=== PATIENT | female | born 1975 | race Caucasian/White ===

== ENCOUNTER 2022-05-22 05:55 | Observation (INO) | payer OTHER ==
[2022-05-17 13:14] LABS: Hemoglobin 14.5 g/dL (12.0-15.5); Mean Corpuscular Hemoglobin 29.8 pg (27.0-33.0); Mean Platelet Volume 10.2 fl (7.4-10.4); Platelet Count 368 10x3/uL (150-450); RBC Distribution Width 12.5 % (11.5-14.5); Red Blood Cell (RBC) Count 4.87 10x6/uL (3.90-5.03); White Blood Cell (WBC) Count 5.9 10x3/uL (3.5-10.5)
[2022-05-17 13:32] LABS: BHCG - Serum Negative (NEGATIVE); Pregs Control Background? CLEAR/WHITE (CLR/WHITE); Pregs Control Bar Appear? YES (CONTROL BAR)
[2022-05-21 08:36] VITALS: BMI 23.0
[2022-05-22] MEDS ORDERED: Gabapentin 300 MG CAP ONE (06:18)
[2022-05-22] MEDS ORDERED: CeleCOXIB 100 MG CAP ONE (06:19)
[2022-05-22] MEDS ORDERED: Famotidine/PF 20 mg/2ml Vial ONE (06:19)
[2022-05-22] MEDS ORDERED: Bupivacaine PF 0.5% 30 ML VIAL ONE (06:34)
[2022-05-22] MEDS ORDERED: EPINEPHrine 1 MG/ML AMP ONE (06:34)
[2022-05-22] MEDS ORDERED: Lidocaine 1% w/Epinephrine 1:200K 30 ML VIAL ONE (06:35)
[2022-05-22] MEDS ORDERED: PROPOFOL 20 ML ONE (06:40)
[2022-05-22] MEDS ORDERED: Glycopyrrolate 0.2 MG/ML 5 ML SYRINGE ONE (06:41)
[2022-05-22] MEDS ORDERED: Midazolam HCl 2 mg/2 ml Vial ONE ×2 (06:41→07:33)
[2022-05-22] MEDS ORDERED: Fentanyl 250 MCG/5 ML VIAL ONE (06:41)
[2022-05-22] MEDS ORDERED: Ondansetron PF 4 MG/2 ML Vial ONE (06:41)
[2022-05-22] MEDS ORDERED: Ketorolac Tromethamine 30 MG/ML VIAL ONE (06:41)
[2022-05-22] MEDS ORDERED: Lidocaine 1% PF 5 ML VIAL ONE (06:41)
[2022-05-22] MEDS ORDERED: Rocuronium Bromide 10 MG/ML (10ML VIAL) ONE (06:41)
[2022-05-22] MEDS ORDERED: Clindamycin/D5W 900 mg/50 ml Premix Bag ONE (06:42)
[2022-05-22] MEDS ORDERED: Levofloxacin 500 mg/D5W 100 ml Premix Bag ONE (07:15)
[2022-05-22 07:18] LABS: SARS-CoV-2 NAA Rapid Test Not Detected (NotDetected)
[2022-05-22] MEDS ORDERED: PHENYLEPHRINE-NS 100 MCG/ML 10 ML SYRINGE ONE (07:48)
[2022-05-22] MEDS ORDERED: Promethazine HCl 25 MG/ML VIAL IM PRN (10:10)
[2022-05-22] MEDS ORDERED: Zolpidem Tartrate 5 MG TAB PO PRN (10:10)
[2022-05-22] MEDS ORDERED: diphenhydrAMINE 25 MG CAP PO PRN (10:10)
[2022-05-22] MEDS ORDERED: Fentanyl 100 MCG/2 ML VIAL SLOW IVP PRN (10:10)
[2022-05-22] MEDS ORDERED: HYDROcodone/Acetaminophen 5/325 mg Tablet PO PRN (10:10)
[2022-05-22] MEDS ORDERED: Bisacodyl 10 MG SUPP PR PRN (10:10)
[2022-05-22] MEDS ORDERED: Acetaminophen 325 MG TAB PO PRN (10:10)
[2022-05-22] MEDS ORDERED: Ondansetron PF 4 MG/2 ML Vial IVP PRN (10:10)
[2022-05-22] MEDS ORDERED: Fentanyl 100 MCG/2 ML VIAL ONE (10:36)
[2022-05-22] MEDS ORDERED: Ketorolac Tromethamine 30 MG/ML VIAL IVP SCH (12:00)
[2022-05-22] MEDS: HYDROcodone/Acetaminophen 5/325 mg Tablet PO PRN (13:19)
[2022-05-22] MEDS: Lactated Ringer's 1,000 ML IV SCH (14:05)
[2022-05-22] MEDS: Ketorolac Tromethamine 30 MG/ML VIAL IVP SCH ×2 (17:14→22:07)
[2022-05-23] MEDS: Lactated Ringer's 1,000 ML IV SCH (00:48)
[2022-05-23] MEDS: HYDROcodone/Acetaminophen 5/325 mg Tablet PO PRN ×3 (01:08→11:25)
[2022-05-23] MEDS: Ketorolac Tromethamine 30 MG/ML VIAL IVP SCH (04:28)
[2022-05-23] MEDS: Simethicone Chewable 80 MG TAB PO PRN ×2 (04:28→08:17)
[2022-05-23 05:08] LABS: Hemoglobin 12.1 g/dL (12.0-15.5); Mean Corpuscular HGB CONC 35.1 g/dL (32.0-36.0); Mean Corpuscular Hemoglobin 29.3 pg (27.0-33.0); Mean Corpuscular Volume 83.5 fl (81.6-98.3); Mean Platelet Volume 9.8 fl (7.4-10.4); Platelet Count 357 10x3/uL (150-450); RBC Distribution Width 12.4 % (11.5-14.5); Red Blood Cell (RBC) Count 4.13 10x6/uL (3.90-5.03); White Blood Cell (WBC) Count 11.9 10x3/uL (3.5-10.5)
[2022-05-23 07:31] VITALS: BP 127/78; TEMP 97.6
[2022-05-27] MEDS ORDERED: Ibuprofen 800 MG TAB PO SCH (14:00)
== END 2022-05-23 11:27 | disposition home or self-care (01) ==
LOC: CSHSDC 05:55 → CSHPED 11:05
PROVIDERS: ADMIT Student in an Organized Health Care Education/Training Program; ATTEND Student in an Organized Health Care Education/Training Program
PROC: 0UT94ZZ Resection of Uterus, Percutaneous Endoscopic Approach (ICD-10-PCS; principal; 2022-05-22)
PROC: 0UT74ZZ Resection of Bilateral Fallopian Tubes, Percutaneous Endoscopic Approach (ICD-10-PCS; 2022-05-22)
PROC: 0TSD4ZZ Reposition Urethra, Percutaneous Endoscopic Approach (ICD-10-PCS; 2022-05-22)
PROC: 0USG4ZZ Reposition Vagina, Percutaneous Endoscopic Approach (ICD-10-PCS; 2022-05-22)
DX: N81.2 Incomplete uterovaginal prolapse (principal); N39.3 Stress incontinence (female) (male); D25.1 Intramural leiomyoma of uterus; N81.6 Rectocele; N72 Inflammatory disease of cervix uteri; N80.03 Adenomyosis of the uterus; Z20.822 Contact with and (suspected) exposure to COVID-19; Z79.899 Other long term (current) drug therapy; Z88.0 Allergy status to penicillin; Z88.2 Allergy status to sulfonamides; Z88.8 Allergy status to other drugs, medicaments and biological substances; Z91.041 Radiographic dye allergy status
CPT/HCPCS: 36415; 84703; 85027; 86850; 86900; 86901; 88307; C1781; J0171; J1885; J1956; J2250; J2405; J2704; J3010; J3490; J7120; S0020; S0028; U0002